=== PATIENT | female | born 1990 | race Asian ===

== ENCOUNTER 2020-06-19 10:26 | Emergency (ER) | payer BC ==
[~2020-06-19] VITALS: Ht 167.6 cm; Wt 61.2 kg
[2020-06-19] MEDS ORDERED: Ketorolac 30mg Inj IM ONE (11:00)
[2020-06-19 11:09] LABS: BILIRUBIN, URINE NEGATIVE (NEGATIVE); COLOR,URINE PALE YELLOW; GLUCOSE, URINE (UA) NEGATIVE (NEGATIVE); KETONES,URINE NEGATIVE (NEGATIVE); LEUKOCYTE ESTERASE ,URINE NEGATIVE (NEGATIVE); NITRITE,URINE NEGATIVE (NEGATIVE); PH,URINE 7 (4.5-8.0); PROTEIN,URINE NEGATIVE (NEGATIVE); UROBILINOGEN,URINE NORMAL MG/DL (0.0-1.0)
[2020-06-19 11:16] LABS: APPEARANCE,URINE CLEAR
[2020-06-19 12:00] VITALS: BP 136/101
--- NOTE | 2020-06-19 12:54 | Emergency Room Report ---
History of Present Illness General Chief Complaint: Back Pain-No Injury Source: Patient Present Illness HPI Patient presents with increased back pain over the last 3 days. She has had mild back pain in the past but never this severe. She woke up this morning and the pain caused her to break out in perspiration. She had difficulty sitting and getting dressed. The pain is 8/10 and in her lower back without radiation. She denies any numbness to her lower extremities. There is no incontinence or numbness. She denies any prior trauma to her lower back. 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 She not take any blood thinners. She denies any oncologic problems. She does not believe she is . She denies any dysuria. She feels improved when she is standing. Patient denies known exposure to Covid positive contacts. 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 No fevers, chills, sore throat, chest pain, palpitations, nausea, vomiting, diarrhea, dysuria, abdominal pain, shortness of breath, rashes, depression, anxiety, visual changes, dizziness, headache. Last menstruation was May 31 and normal for her. 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: Yes COVID-19 Screening: Negative COVID-19 COVID-19 Testing Source: 04/2020 Patient History Past Medical History: see triage record Social History: Denies: smoking, alcohol use, drug use Social History Narrative Manages hotel cleaning service Last Menstrual Period: 05/31/20 Now: No Reviewed Nursing Documentation: PMH: Agreed; PSxH: Agreed Nursing Documentation-PMH Past Medical History: No Stated History Review of Systems All Other Systems: negative except mentioned in HPI Physical Exam Vital Signs Date Time Temp Pulse Resp B/P (MAP) Pulse Ox O2 Delivery O2 Flow Rate FiO2 06/19/20 10:32 98.1 81 16 136/101 (113) 97 Room Air Sp02 EP Interpretation: reviewed, normal General Appearance: well appearing, no apparent distress - However in pain when she moves to sit, GCS 15, non-toxic Head: normocephalic Eyes: bilateral eye normal inspection, bilateral eye PERRL, bilateral eye EOMI ENT: other - Wearing a mask Neck: normal inspection, full range of motion Respiratory: normal inspection, lungs clear, normal breath sounds Cardiovascular #1: regular rate, rhythm Gastrointestinal: normal inspection Genitourinary: no CVA tenderness Musculoskeletal: gait/station normal - Somewhat stiff backed, tenderness - Lumbar area with some paraspinous spasm and tenderness, other - Straight leg raise without signs of sciatica however some increased pain in her lumbar area Neurologic: alert, motor strength/tone normal, DTRs symmetric, oriented x3, sensory intact, speech normal Psychiatric: mood/affect normal Skin: normal color, no rash, warm/dry Medical Decision Making Diagnostic Impression: Primary Impression: Acute back pain Qualified Codes: M54.5 - Low back pain Additional Impression: Muscle spasm ER Course Patient presents with new onset acute lumbar pain. Differential includes lumbar strain, muscle spasm, herniated disc amongst others. We need to exclude urinary tract infection. As patient is in severe pain lumbar films are indicated. There is no evidence of sciatica and therefore CT of the spine is not indicated. Patient will be treated with Toradol IM and Soma p.o. No blood work is indicated at this time. Urinalysis negative. Lumbar sacral spine essentially normal with some minimal narrowing of L5-S1. Patient improved with treatment. Discussed findings with patient. Discussed the need for outpatient reevaluation and physical therapy. Patient stable for outpatient observation and treatment. Laboratory Tests Test 06/19/20 11:00 Urine Color Pale yellow Urine Appearance Clear Urine pH 7 (4.5-8.0) Urine Specific [place] 1.005 (1.005-1.035) Urine Protein Negative (NEGATIVE) Urine Glucose (UA) Negative (NEGATIVE) Urine Ketones Negative (NEGATIVE) Urine Blood Negative (NEGATIVE) Urine Nitrite Negative (NEGATIVE) Urine Bilirubin Negative (NEGATIVE) Urine Urobilinogen Normal MG/DL (0.0-1.0) Urine Leukocyte Esterase Negative (NEGATIVE) Urine HCG, Qualitative Negative (NEGATIVE) Other X-Ray Diagnostic Results Other X-Ray Diagnostic Results : X-Ray ordered: Lumbar sacral spine films # of Views/Limited Vs Complete: 3 View Indication: Pain EP Interpretation: Yes Interpretation: no dislocation, no soft tissue swelling, no fractures, other - Slight narrowing L5-S1 Impression: No acute disease Electronically Signed by: Electronically signed by Berlin Jimenez MD Last Vital Signs Date Time Temp Pulse Resp B/P (MAP) Pulse Ox O2 Delivery O2 Flow Rate FiO2 06/19/20 13:05 98.0 79 13 138/78 100 Room Air Status: improved Disposition: HOME, SELF-CARE Condition: Improved Scripts Methocarbamol* (ROBAXIN-500*) 500 Mg Tablet 500 MG ORAL TID, #8 TAB 0 Refills Prov: Berlin Jimenez MD 06/19/20 Ibuprofen* (MOTRIN*) 600 Mg Tablet 600 MG ORAL Q6H PRN for FOR PAIN, #20 TAB 0 Refills Prov: Berlin Jimenez MD 06/19/20 Tramadol Hcl* (ULTRAM*) 50 Mg Tablet 50 MG ORAL Q6H PRN for For Pain, #6 TAB 0 Refills Prov: Berlin Jimenez MD 06/19/20 Referrals: NOT CHOSEN IPA/,REFERRING (PCP) Berlin Jimenez MD Jun 19, 2020 12:54
[2020-06-19] MEDS ORDERED: ROBAXIN-500MG ORAL (12:58)
[2020-06-19] MEDS ORDERED: IBUPROFEN600 M1 ORAL (12:58)
[2020-06-19] MEDS ORDERED: TRAMADOL HCL50 MG ORAL (12:58)
[2020-06-19 13:05] VITALS: BP 138/78
--- NOTE | 2020-06-19 16:43 | Diagnostic Imaging Report ---
Indication: Back pain Technique: 3 views of the lumbar spine Comparison: None Findings: Bony alignment is normal. Vertebral body heights are preserved. Disc spaces are preserved. Pedicles are intact. Sacral arches and sacroiliac joint spaces are preserved. The soft tissues are unremarkable Impression: No acute process
== END 2020-06-19 13:07 | disposition home or self-care (01) ==
LOC: EMR 10:52
DX: M54.5 Low back pain (principal); M62.830 Muscle spasm of back
CPT/HCPCS: 72020; 81003; 81025; 96372; 99284; J1885